=== PATIENT | male | born 1935 | race Caucasian/White ===

== ENCOUNTER 2020-06-10 11:57 | Emergency (ER) | payer MEDICARE, BC ==
--- NOTE | 2020-06-10 12:33 | EDM.PDOC ---
ED HPI GENERAL MEDICAL PROBLEM - General Chief Complaint: Skin Complaint Stated Complaint: LEFT HAND INFECTION? Time Seen by Provider: 06/10/20 12:00 Source of Information: Reports: Patient, Family, RN History Limitations: Reports: No Limitations - History of Present Illness INITIAL COMMENTS - FREE TEXT/NARRATIVE: 84 year old male with PMH HTN presents to ED with increased swelling and drainage from left hand surgical procedure to release contracture on 06/01/2020. Has had pain in left 4th finger, but feels the pain is increased as well as the swelling. Patient has not taken anything for pain. His daughter is with him and states that the infection was not present yesterday. CMS +. Denies any cough, fever, CP, SOB. Location: Reports: Upper Extremity, Left Quality: Reports: Throbbing Severity: Mild Improves with: Reports: Medication Worsens with: Reports: Movement - Related Data Allergies Allergy/AdvReac Type Severity Reaction Status Date / Time No Known Allergies Allergy Verified 06/10/20 12:04 Home Meds: Home Meds Gabapentin [Neurontin] 600 mg PO TID 06/10/20 [History] lisinopriL [Lisinopril] 5 mg PO DAILY 06/10/20 [History] traMADol [Ultram] 100 mg PO Q6H PRN 06/10/20 [History] ED ROS GENERAL - Review of Systems Review Of Systems: See Below Constitutional: Reports: No Symptoms HEENT: Reports: No Symptoms Respiratory: Reports: No Symptoms Cardiovascular: Reports: No Symptoms Endocrine: Reports: No Symptoms GI/Abdominal: Reports: No Symptoms : Reports: No Symptoms Musculoskeletal: Reports: No Symptoms Skin: Reports: Erythema, Wound, Other (surgical incision, [address] with clear to cloudy odorless dry drainage. Minimal redness, warmth, no spr eading of redness noted.) Neurological: Reports: No Symptoms Psychiatric: Reports: No Symptoms Hematologic/Lymphatic: Reports: No Symptoms Immunologic: Reports: No Symptoms ED EXAM, SKIN/RASH Exam: See Below Exam Limited By: No Limitations General Appearance: Alert, No Apparent Distress Ears: Normal External Exam, Normal Canal, Hearing Grossly Normal, Normal TMs Nose: Normal Inspection, Normal Mucosa, No Blood Throat/Mouth: Normal Inspection, Normal Lips, Normal Oropharynx, Normal Voice, No Airway Compromise Head: Atraumatic Neck: Normal Inspection, Non-Tender, Full Range of Motion Respiratory/Chest: No Respiratory Distress, Lungs Clear, Normal Breath Sounds, No Accessory Muscle Use Cardiovascular: Normal Peripheral Pulses, Regular Rate, Rhythm, No Edema, No JVD, No Murmur Peripheral Pulses: 3+: Radial (L), Radial (R) GI/Abdominal: Non-Tender (Male) Exam: Deferred Rectal (Males) Exam: Deferred Back Exam: Normal Inspection, Full Range of Motion Extremities: Normal Inspection, No Pedal Edema, Normal Capillary Refill, Redness, Other (left hand palm, decreased ROM with left 4th finger) Neurological: Alert, Oriented, Normal Cognition, Normal Gait, No Motor/Sensory Deficits Psychiatric: Normal Affect, Normal Mood Skin: Warm, Dry, No Rash, Erythema, Wound/Incision Location, Skin: Upper Extremity, Left Associated features: Tenderness, Swelling Lymphatic: No Adenopathy Departure - Departure Time of Disposition: 12:25 Disposition: Home, Self-Care 01 Clinical Impression: Surgical wound infection - Discharge Information *PRESCRIPTION DRUG MONITORING PROGRAM REVIEWED*: Not Applicable *COPY OF PRESCRIPTION DRUG MONITORING REPORT IN PATIENT LIZET: Not Applicable Instructions: Wound Infection, [id number], Cephalexin Tablets or Capsules Forms: ED Department Discharge Additional Instructions: Begin taking provided Keflex today as directed: 1 tablet by mouth every 6 hours until all are gone. Fill written prescription for additional Keflex and continue to take as directed for entire course. Keep follow up appointment with regular provider for post-op suture removal on Thursday. Be sure to take Keflex with food to avoid upset stomach the antibiotic may cause. Monitor affected area for worsening infection including: increased redness, increased swelling, increased pain or tenderness to touch, foul drainage and/or fever present. Should any of these symptoms occur, return to be seen for further evaluation. Call with any questions. - Assessment/Plan Plan: Patient will start keflex today and take every 6 hours for 7 days. He will keep his appointment for suture removal on Thursday and will return to ED if his symptoms increase or any new concerning symptoms start. Daughter and patient verbalized understanding and all questions were answered prior to DC. Bacitracin and tegaderm dressing applied.
[2020-06-10] MEDS ORDERED: Cephalexin 500 MG Cap ONE (13:11)
== END 2020-06-10 12:20 | disposition home or self-care (01) ==
LOC: LB.ED 11:57
DX: T81.40XA Infection following a procedure, unspecified, initial encounter (principal); I10 Essential (primary) hypertension; Z79.899 Other long term (current) drug therapy
CPT/HCPCS: 99283; A9270-GY